=== PATIENT | female | born 1945 | race Caucasian/White ===

== ENCOUNTER → 2020-09-11 | Outpatient (REF) | payer MEDICARE, OTHER ==
[2020-09-11 12:58] LABS: HEMATOCRIT 42.3 % (36.0-47.0); HEMOGLOBIN 13.5 g/dl (12.0-15.5); MEAN CORPUSCULAR HEMOGLOBIN 28.8 pg (27.0-33.0); MEAN CORPUSCULAR HGB CONC 31.9 g/dl (32.0-36.5); MEAN CORPUSCULAR VOLUME 90.2 fl (80.0-96.0); PLATELET COUNT, AUTOMATED 241 10^3/uL (150-450); RED BLOOD COUNT 4.69 10^6/uL (4.00-5.40); WHITE BLOOD COUNT 4.9 10^3/uL (4.0-10.0)
[2020-09-11 13:50] LABS: BLOOD UREA NITROGEN 15 MG/DL (7-18); CALCIUM LEVEL 9.7 MG/DL (8.8-10.2); CARBON DIOXIDE LEVEL 32 MEQ/L (21-32); CHLORIDE LEVEL 104 MEQ/L (98-107); GLOMERULAR FILTRATION RATE > 60.0 (>39); GLUCOSE, FASTING 138 MG/DL (70-100); POTASSIUM SERUM 4.2 MEQ/L (3.5-5.1); SODIUM LEVEL 141 MEQ/L (136-145)
[2020-09-11 18:33] LABS: HEMOGLOBIN A1c 6.8 %
== END ==
LOC: M SFHCADAM 10:53
PROVIDERS: ATTEND Physician Assistant
DX: R73.01 Impaired fasting glucose (principal); I10 Essential (primary) hypertension

== ENCOUNTER 2020-10-23 09:44 | Emergency (ER) | payer MEDICARE, OTHER ==
[~2020-10-23] VITALS: Ht 172.7 cm; Wt 72.5 kg
[2020-10-23 10:36] LABS: BASO # 0.1 10^3/uL (0.0-0.2); BASO % 0.8 % (0.0-1.0); EOS # 0.1 10^3/uL (0.0-0.5); EOS % 2.3 % (0.0-3.0); HEMATOCRIT 44.5 % (36.0-47.0); HEMOGLOBIN 14.4 g/dl (12.0-15.5); LYMPH # 1.1 10^3/uL (1.5-5.0); MEAN CORPUSCULAR HEMOGLOBIN 29.6 pg (27.0-33.0); MEAN CORPUSCULAR HGB CONC 32.4 g/dl (32.0-36.5); MEAN CORPUSCULAR VOLUME 91.4 fl (80.0-96.0); MONO # 0.4 10^3/uL (0.0-0.8); MONO % 7.2 % (2.0-8.0); NEUTROPHILS # 4.3 10^3/uL (1.5-8.5); NEUTROPHILS % 71.4 % (36.0-66.0); PLATELET COUNT, AUTOMATED 244 10^3/uL (150-450); RED BLOOD COUNT 4.87 10^6/uL (4.00-5.40); WHITE BLOOD COUNT 6.1 10^3/uL (4.0-10.0)
--- NOTE | 2020-10-23 10:59 | REP ---
INDICATION: CHEST PAIN. COMPARISON: None. TECHNIQUE: Single portable AP view of the chest was performed. FINDINGS: There is mild linear fibro atelectatic change in each lung base without evidence of infiltrate. There is mild cardiomegaly. There is calcification and tortuosity of the thoracic aorta. The mediastinal silhouette is unchanged. IMPRESSION: No acute pulmonary disease.Mild cardiomegaly. <Electronically signed by Christoph Gama > 10/23/20 [id number]
[2020-10-23 11:13] LABS: ALBUMIN 3.8 GM/DL (3.2-5.2); ALT/SGPT 24 U/L (12-78); BILIRUBIN,DIRECT 0.1 MG/DL (0.0-0.2); BILIRUBIN,TOTAL 0.6 MG/DL (0.2-1.0); BLOOD UREA NITROGEN 19 MG/DL (7-18); CALCIUM LEVEL 9.2 MG/DL (8.8-10.2); CARBON DIOXIDE LEVEL 34 MEQ/L (21-32); CHLORIDE LEVEL 104 MEQ/L (98-107); CK-MB VALUE MASS 1.4 NG/ML (<3.6); CPK CREATINE PHOSPHOKINASE 75 U/L (26-192); CREATININE FOR GFR 0.98 MG/DL (0.55-1.30); FREE T4 0.94 NG/DL (0.76-1.46); GLOMERULAR FILTRATION RATE 58.6 (>39); GLUCOSE, FASTING 148 MG/DL (70-100); LIPASE 61 U/L (73-393); MB/CK RELATIVE INDEX 1.87 (< OR =4); NT-PRO BNP 2521 PG/ML (<450); POTASSIUM SERUM 4.5 MEQ/L (3.5-5.1); SODIUM LEVEL 140 MEQ/L (136-145); TOTAL PROTEIN 6.9 GM/DL (6.4-8.2); TROPONIN I < 0.02 NG/ML (< 0.10)
[2020-10-23] MEDS ORDERED: APIXABAN 5 MG TAB (ELIQUIS) PO ONE (12:05)
[2020-10-23] MEDS ORDERED: CARVedilol 6.25 MG TAB PO ONE (12:05)
[2020-10-23] MEDS ORDERED: CORE6.25 PO (14:48)
[2020-10-23] MEDS ORDERED: ELIQ5TAB PO (14:48)
[2020-10-23 15:01] VITALS: BP 159/94
--- NOTE | 2020-10-23 17:03 | ECGEPIP ---
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
== END 2020-10-23 15:20 | disposition home or self-care (01) ==
LOC: M ED 09:44
DX: I48.91 Unspecified atrial fibrillation (principal); I10 Essential (primary) hypertension; R73.01 Impaired fasting glucose; Z79.899 Other long term (current) drug therapy; Z79.01 Long term (current) use of anticoagulants

== ENCOUNTER → 2021-02-02 | Outpatient (REF) | payer MEDICARE, OTHER ==
[~2021-02-02] MED LIST: CORE6.25 PO; ELIQ5TAB PO
[2021-02-02 18:16] LABS: HEMATOCRIT 42.5 % (36.0-47.0); MEAN CORPUSCULAR HEMOGLOBIN 29.4 pg (27.0-33.0); MEAN CORPUSCULAR HGB CONC 32.9 g/dl (32.0-36.5); MEAN CORPUSCULAR VOLUME 89.3 fl (80.0-96.0); PLATELET COUNT, AUTOMATED 227 10^3/uL (150-450); RED BLOOD COUNT 4.76 10^6/uL (4.00-5.40); WHITE BLOOD COUNT 6.4 10^3/uL (4.0-10.0)
[2021-02-02 18:42] LABS: ALBUMIN 3.6 GM/DL (3.2-5.2); ALT/SGPT 31 U/L (12-78); BILIRUBIN,TOTAL 0.5 MG/DL (0.2-1.0); BLOOD UREA NITROGEN 18 MG/DL (7-18); CALCIUM LEVEL 9.1 MG/DL (8.8-10.2); CARBON DIOXIDE LEVEL 32 MEQ/L (21-32); CHLORIDE LEVEL 106 MEQ/L (98-107); CHOLESTEROL LEVEL 192 MG/DL (<200); CHOLESTEROL RISK RATIO 4.363 (<5); CREATININE FOR GFR 0.94 MG/DL (0.55-1.30); GLOMERULAR FILTRATION RATE > 60.0 (>39); GLUCOSE, FASTING 115 MG/DL (70-100); HDL CHOLESTEROL 44 MG/DL (>40); LDL CHOLESTEROL 123 MG/DL (<100); NON-HDL-C 148 MG/DL; POTASSIUM SERUM 4.8 MEQ/L (3.5-5.1); SODIUM LEVEL 141 MEQ/L (136-145); TOTAL PROTEIN 6.4 GM/DL (6.4-8.2); TRIGLYCERIDES LEVEL 124 MG/DL (<150)
[2021-02-02 19:05] LABS: HEMOGLOBIN A1c 7.2 %
== END ==
LOC: M SFHCADAM 13:36
PROVIDERS: ATTEND Physician Assistant
DX: Z13.220 Encounter for screening for lipoid disorders (principal); I10 Essential (primary) hypertension; R73.01 Impaired fasting glucose; I48.91 Unspecified atrial fibrillation
CPT/HCPCS: 80053; 80061; 83036; 85027; G0463

== ENCOUNTER → 2021-05-15 | Outpatient (REF) | payer MEDICARE, OTHER | LOC: M SFHCADAM 17:01 | PROVIDERS: ATTEND Physician Assistant | DX: R05.9 Cough, unspecified (principal) ==

== ENCOUNTER → 2021-05-15 | Outpatient (CLI) | payer MEDICARE, OTHER | LOC: M ADAMS 15:07 | PROVIDERS: ATTEND Physician Assistant | DX: R91.8 Other nonspecific abnormal finding of lung field (principal); J90 Pleural effusion, not elsewhere classified; R05.9 Cough, unspecified | CPT/HCPCS: 71046; 87426; G0463; U0003 ==

== ENCOUNTER → 2021-10-03 | Outpatient (CLI) | payer MEDICARE, OTHER ==
[2021-10-03 12:29] LABS: HEMATOCRIT 42.9 % (36.0-47.0); MEAN CORPUSCULAR HEMOGLOBIN 29.7 pg (27.0-33.0); MEAN CORPUSCULAR HGB CONC 32.6 g/dl (32.0-36.5); MEAN CORPUSCULAR VOLUME 90.9 fl (80.0-96.0); PLATELET COUNT, AUTOMATED 188 10^3/uL (150-450); RED BLOOD COUNT 4.72 10^6/uL (4.00-5.40); WHITE BLOOD COUNT 5.4 10^3/uL (4.0-10.0)
[2021-10-03 13:11] LABS: ALBUMIN 3.5 GM/DL (3.2-5.2); BILIRUBIN,TOTAL 0.8 MG/DL (0.2-1.0); CALCIUM LEVEL 8.7 MG/DL (8.8-10.2); CREATININE FOR GFR 1.13 MG/DL (0.55-1.30); GLOMERULAR FILTRATION RATE 49.6 (>39); MAGNESIUM LEVEL 2.3 MG/DL (1.8-2.4); POTASSIUM SERUM 4.4 MEQ/L (3.5-5.1); TOTAL PROTEIN 6.4 GM/DL (6.4-8.2)
== END ==
LOC: M WUC 08:45
PROVIDERS: ATTEND Physician Assistant
DX: I48.91 Unspecified atrial fibrillation (principal); I10 Essential (primary) hypertension

== ENCOUNTER → 2022-02-08 | Outpatient (REF) | payer MEDICARE, OTHER ==
[2022-02-08 17:57] LABS: HEMOGLOBIN 13.3 g/dl (12.0-15.5); MEAN CORPUSCULAR HEMOGLOBIN 30.2 pg (27.0-33.0); MEAN CORPUSCULAR HGB CONC 32.4 g/dl (32.0-36.5); PLATELET COUNT, AUTOMATED 189 10^3/uL (150-450); RED BLOOD COUNT 4.41 10^6/uL (4.00-5.40); WHITE BLOOD COUNT 5.4 10^3/uL (4.0-10.0)
[2022-02-08 18:23] LABS: HEMOGLOBIN A1c 7.3 %
[2022-02-08 18:27] LABS: APPEARANCE, URINE MANUAL CLEAR (CLEAR); COLOR, URINE MANUAL YELLOW (YELLOW)
[2022-02-08 18:28] LABS: BILIRUBIN, URINE MANUAL NEGATIVE (NEGATIVE); BLOOD URINE MANUAL NEGATIVE (NEGATIVE); GLUCOSE, URINE (UA) MANUAL 2+(250 MG/DL) mg/dL (NEGATIVE); KETONE, URINE MANUAL NEGATIVE (NEGATIVE); LEUKOCYTE ESTERASE, URINE MAN NEGATIVE (NEGATIVE); NITRITE, URINE MANUAL NEGATIVE (NEGATIVE); PROTEIN, URINE MANUAL NEGATIVE (NEGATIVE); SPECIFIC GRAVITY,URINE MANUAL 1.025 (1.002-1.035); UROBILINOGEN, URINE MANUAL NORMAL (NORMAL)
[2022-02-08 18:40] LABS: ALBUMIN 3.6 GM/DL (3.2-5.2); BILIRUBIN,TOTAL 0.7 MG/DL (0.2-1.0); CALCIUM LEVEL 9.3 MG/DL (8.8-10.2); CHOLESTEROL RISK RATIO 3.744 (<5); CREATININE FOR GFR 1.03 MG/DL (0.55-1.30); FREE T4 0.92 NG/DL (0.76-1.46); GLOMERULAR FILTRATION RATE 55.2 (>39); POTASSIUM SERUM 4.3 MEQ/L (3.5-5.1); THYROID STIMULATING HORMONE 1.73 uIU/ML (0.358-3.740); TOTAL PROTEIN 6.6 GM/DL (6.4-8.2)
== END ==
LOC: M SFHCADAM 11:58
PROVIDERS: ATTEND Physician Assistant
DX: I48.91 Unspecified atrial fibrillation (principal); I10 Essential (primary) hypertension; E11.9 Type 2 diabetes mellitus without complications; R35.0 Frequency of micturition

== ENCOUNTER → 2022-09-13 | Outpatient (REF) | payer MEDICARE, OTHER ==
[2022-09-13 17:32] LABS: ALBUMIN 4.1 G/DL (3.2-5.2); ALKALINE PHOSPHATASE 88 U/L (46-116); ALT/SGPT 32 U/L (7.0-40); AST/SGOT 29 U/L (<34); BILIRUBIN,TOTAL 0.7 MG/DL (0.3-1.2); BLOOD UREA NITROGEN 17 MG/DL (9-23); CALCIUM LEVEL 9.5 MG/DL (8.3-10.6); CARBON DIOXIDE LEVEL 32 MMOL/L (20-31); CHLORIDE LEVEL 104 MMOL/L (98-107); CREATININE FOR GFR 0.89 MG/DL (0.55-1.30); GLOMERULAR FILTRATION RATE > 60.0 (>39); GLUCOSE, FASTING 148 MG/DL (74-106); POTASSIUM SERUM 4.7 MMOL/L (3.5-5.1); SODIUM LEVEL 139 MMOL/L (136-145); TOTAL PROTEIN 7.1 G/DL (5.7-8.2)
[2022-09-13 17:43] LABS: HEMOGLOBIN A1c 7.8 % (4.0-6.0)
== END ==
LOC: M SFHCADAM 11:43
PROVIDERS: ATTEND Physician Assistant
DX: I10 Essential (primary) hypertension (principal); I48.91 Unspecified atrial fibrillation; E11.9 Type 2 diabetes mellitus without complications

== ENCOUNTER → 2023-01-14 | Outpatient (REF) | payer MEDICARE, OTHER ==
[2023-01-14 17:30] LABS: HEMATOCRIT 41.9 % (36.0-47.0); HEMOGLOBIN 13.3 g/dl (12.0-15.5); MEAN CORPUSCULAR HEMOGLOBIN 29.4 pg (27.0-33.0); MEAN CORPUSCULAR HGB CONC 31.7 g/dl (32.0-36.5); MEAN CORPUSCULAR VOLUME 92.7 fl (80.0-96.0); PLATELET COUNT, AUTOMATED 236 10^3/uL (150-450); RED BLOOD COUNT 4.52 10^6/uL (4.00-5.40); WHITE BLOOD COUNT 6.9 10^3/uL (4.0-10.0)
[2023-01-14 17:53] LABS: ALBUMIN 3.8 G/DL (3.2-5.2); ALKALINE PHOSPHATASE 89 U/L (46-116); ALT/SGPT 21 U/L (7.0-40); AST/SGOT 14 U/L (<34); BILIRUBIN,TOTAL 0.8 MG/DL (0.3-1.2); BLOOD UREA NITROGEN 15 MG/DL (9-23); CALCIUM LEVEL 9.5 MG/DL (8.3-10.6); CARBON DIOXIDE LEVEL 32 MMOL/L (20-31); CHLORIDE LEVEL 102 MMOL/L (98-107); CHOLESTEROL LEVEL 197 MG/DL (<200); CHOLESTEROL RISK RATIO 4.37 (<5); CREATININE FOR GFR 0.88 MG/DL (0.55-1.30); GLOMERULAR FILTRATION RATE > 60.0 (>39); GLUCOSE, FASTING 243 MG/DL (74-106); LDL CHOLESTEROL 120.2 MG/DL (<100); POTASSIUM SERUM 4.9 MMOL/L (3.5-5.1); SODIUM LEVEL 138 MMOL/L (136-145); THYROID STIMULATING HORMONE 2.339 uIU/ML (0.55-4.78); TOTAL PROTEIN 6.9 G/DL (5.7-8.2); TRIGLYCERIDES LEVEL 159 MG/DL (<150)
[2023-01-14 17:55] LABS: FOLATE 19.8 NG/ML (>5.4); FREE T4 0.98 NG/DL (0.89-1.76); HEMOGLOBIN A1c 7.5 % (4.0-6.0)
[2023-01-14 17:56] LABS: VITAMIN B12 LEVEL 473 PG/ML (211-911)
== END ==
LOC: M SFHCADAM 12:01
PROVIDERS: ATTEND Physician Assistant
DX: I10 Essential (primary) hypertension (principal); I48.91 Unspecified atrial fibrillation; E11.9 Type 2 diabetes mellitus without complications

== ENCOUNTER → 2023-07-24 | Outpatient (REF) | payer MEDICARE, OTHER ==
[2023-07-24 14:48] LABS: BASO % 0.6 % (0.0-1.0); EOS # 0.1 10^3/uL (0.0-0.5); EOS % 1.8 % (0.0-3.0); HEMATOCRIT 38.9 % (36.0-47.0); HEMOGLOBIN 12.9 g/dl (12.0-15.5); LYMPH # 0.8 10^3/uL (1.5-5.0); LYMPH % 11.3 % (24.0-44.0); MEAN CORPUSCULAR HEMOGLOBIN 29.7 pg (27.0-33.0); MEAN CORPUSCULAR HGB CONC 33.2 g/dl (32.0-36.5); MEAN CORPUSCULAR VOLUME 89.4 fl (80.0-96.0); MONO # 0.5 10^3/uL (0.0-0.8); NEUTROPHILS # 5.2 10^3/uL (1.5-8.5); NEUTROPHILS % 78.5 % (36.0-66.0); PLATELET COUNT, AUTOMATED 206 10^3/uL (150-450); RED BLOOD COUNT 4.35 10^6/uL (4.00-5.40); WHITE BLOOD COUNT 6.6 10^3/uL (4.0-10.0)
[2023-07-24 15:19] LABS: ALBUMIN 3.6 G/DL (3.2-5.2); ALKALINE PHOSPHATASE 80 U/L (46-116); ALT/SGPT 18 U/L (7.0-40); AST/SGOT 13 U/L (<34); BILIRUBIN,TOTAL 0.8 MG/DL (0.3-1.2); BLOOD UREA NITROGEN 15 MG/DL (9-23); CALCIUM LEVEL 8.9 MG/DL (8.3-10.6); CARBON DIOXIDE LEVEL 33 MMOL/L (20-31); CHLORIDE LEVEL 103 MMOL/L (98-107); CREATININE FOR GFR 0.84 MG/DL (0.55-1.30); GLOMERULAR FILTRATION RATE > 60.0 (>39); GLUCOSE, FASTING 319 MG/DL (74-106); POTASSIUM SERUM 3.9 MMOL/L (3.5-5.1); SODIUM LEVEL 140 MMOL/L (136-145); TOTAL PROTEIN 6.5 G/DL (5.7-8.2)
== END ==
LOC: M SFHCADAM 11:24
PROVIDERS: ATTEND Physician Assistant
DX: E11.9 Type 2 diabetes mellitus without complications (principal); E78.00 Pure hypercholesterolemia, unspecified

== ENCOUNTER → 2023-08-29 | Outpatient (REF) | payer MEDICARE, OTHER ==
[2023-08-29 14:14] LABS: CHOLESTEROL RISK RATIO 3.24 (<5); HDL CHOLESTEROL 40.1 MG/DL (>40); LDL CHOLESTEROL 65.5 MG/DL (<100); NON-HDL-C 89.9 MG/DL
== END ==
LOC: M SFHCADAM 10:55
PROVIDERS: ATTEND Family Medicine
DX: E11.9 Type 2 diabetes mellitus without complications (principal); E78.00 Pure hypercholesterolemia, unspecified

== ENCOUNTER → 2023-09-02 | Outpatient (REF) | payer MEDICARE, OTHER ==
[2023-09-02 18:28] LABS: APPEARANCE, URINE CLEAR (CLEAR); BACTERIA, URINE AUTO NEGATIVE (NEGATIVE); BILIRUBIN, URINE AUTO NEGATIVE (NEGATIVE); BLOOD, URINE BLOOD NEGATIVE (NEGATIVE); COLOR, URINE STRAW (YELLOW); GLUCOSE, URINE (UA) AUTO NEGATIVE (NEGATIVE); KETONE, URINE AUTO NEGATIVE (NEGATIVE); LEUKOCYTE ESTERASE, URINE AUTO NEGATIVE (NEGATIVE); NITRITE, URINE AUTO NEGATIVE (NEGATIVE); PROTEIN, URINE AUTO NEGATIVE (NEGATIVE); RBC, URINE AUTO 0 /HPF (0-3); SQUAMOUS EPITHELIAL CELL UR AU 0 /HPF (0-6); UROBILINOGEN, URINE AUTO 0.2 mg/dL (0.0-2.0); WBC, URINE AUTO 0 /HPF (0-3)
== END ==
LOC: M SFHCADAM 17:19
PROVIDERS: ATTEND Physician Assistant
DX: R58 Hemorrhage, not elsewhere classified (principal); Z79.899 Other long term (current) drug therapy

== ENCOUNTER → 2023-11-20 | Outpatient (REF) | payer MEDICARE, OTHER ==
[2023-11-20 13:47] LABS: IRON (FE) 121 UG/DL (50-170)
[2023-11-20 13:51] LABS: VITAMIN B12 LEVEL 596 PG/ML (211-911)
== END ==
LOC: M LAB REF 12:45
PROVIDERS: ATTEND Nurse Practitioner Adult Health
DX: R41.3 Other amnesia (principal); F01-F99 Mental, behavioral and neurodevelopmental disorders; Z11.3 Encounter for screening for infections with a predominantly sexual mode of transmission; Z72.89 Other problems related to lifestyle

== ENCOUNTER → 2023-12-04 | Outpatient (CLI) | payer MEDICARE, OTHER | LOC: M RAD 11:05 | PROVIDERS: ATTEND Nurse Practitioner Adult Health | DX: R41.3 Other amnesia (principal); R26.89 Other abnormalities of gait and mobility ==

== ENCOUNTER 2025-05-06 10:20 | Inpatient (IN) | payer MEDICARE, OTHER ==
[~2025-05-06] VITALS: Ht 172.7 cm; Wt 69.1 kg
[2025-05-06] MEDS ORDERED: DONE5TAB82 PO (10:42)
[2025-05-06] MEDS ORDERED: METF500T13 PO (10:42)
[2025-05-06] MEDS ORDERED: ATOR1TAB19 PO (10:42)
[2025-05-06] MEDS ORDERED: CARV25TA PO (10:42)
[2025-05-06] MEDS ORDERED: OXYB-54 PO (10:42)
[2025-05-06] MEDS ORDERED: VALS1TAB67 PO (10:42)
[2025-05-06] MEDS ORDERED: HYDR-3490 PO (10:42)
[2025-05-06 11:26] LABS: VENOUS BASE EXCESS 4.4 (-2.0-2.0); VENOUS HCO3 30.4 MMOL/L (23.0-27.0); VENOUS O2 SATURATION 68.6 % (60.0-80.0); VENOUS PARTIAL PRESSURE CO2 50.6 mmHg (38.0-50.0); VENOUS PARTIAL PRESSURE O2 37.3 mmHg (30.0-50.0); VENOUS PH 7.396 UNITS (7.330-7.430); VENOUS STANDARD HCO3 27.6 MMOL/L; VENOUS TOTAL CO2 31.9 MMOL/L (24.0-28.0)
[2025-05-06] MEDS: LIDOCAINE 2% 5 ML JELLY UROJET TOP ONE (11:27)
[2025-05-06 11:33] LABS: BASO # 0.0 10^3/uL (0.0-0.2); BASO % 0.5 % (0.0-1.0); EOS # 0.1 10^3/uL (0.0-0.5); EOS % 2.3 % (0.0-3.0); LYMPH # 0.9 10^3/uL (1.5-5.0); LYMPH % 21.3 % (24.0-44.0); MONO # 0.4 10^3/uL (0.0-0.8); MONO % 8.4 % (2.0-8.0); NEUTROPHILS # 3.0 10^3/uL (1.5-8.5); NEUTROPHILS % 66.8 % (36.0-66.0); PLATELET COUNT, AUTOMATED 196 10^3/uL (150-450)
[2025-05-06 11:52] LABS: KETONE, URINE AUTO RFX NEGATIVE (NEGATIVE); LEUKOCYTE ESTERASE UR AUTO RFX NEGATIVE (NEGATIVE); MUCUS, URINE RFX SMALL (NEGATIVE); NITRITE, URINE AUTO RFX NEGATIVE (NEGATIVE); RBC, URINE AUTO RFX 1 /HPF (0-3); SQUAM EPITHELIAL CELL UR AURFX 0 /HPF (0-6); WBC, URINE AUTO RFX 1 /HPF (0-3)
[2025-05-06 12:22] LABS: CK-MB VALUE MASS 2.3 NG/ML (<3.6); ETHYL ALCOHOL (ETHANOL) < 0.003 % (0.000-0.010)
[2025-05-06 12:24] LABS: ALT/SGPT 16 U/L (7.0-40); AST/SGOT 23 U/L (<34); CALCIUM LEVEL 8.9 MG/DL (8.3-10.6); CARBON DIOXIDE LEVEL 30 MMOL/L (20-31); CHLORIDE LEVEL 97 MMOL/L (98-107); CPK CREATINE PHOSPHOKINASE 43 U/L (34-145); CREATININE FOR GFR 0.98 MG/DL (0.55-1.30); GLOMERULAR FILTRATION RATE 58.0 (>32); MB/CK RELATIVE INDEX 5.34 (< OR =4); POTASSIUM SERUM 3.4 MMOL/L (3.5-5.1); SALICYLATE LEVEL < 3.0 MG/DL (<30); SODIUM LEVEL 137 MMOL/L (136-145)
[2025-05-06] MEDS: NS (Normal Saline) 0.9% 1,000 ML IV ONE (12:40)
[2025-05-06 12:44] LABS: ESTIMATED AVERAGE GLUCOSE 249.0 MG/DL (60-110)
[2025-05-06] MEDS: HumuLIN R (REGULAR) INSULIN (NovoLIN R) **100 U/ML** PER UNIT IV ONE (12:45)
[2025-05-06 13:37] LABS: CK-MB VALUE MASS 1.7 NG/ML (<3.6)
[2025-05-06 13:38] LABS: CPK CREATINE PHOSPHOKINASE 45.0 U/L (34-145); MB/CK RELATIVE INDEX 3.77 (< OR =4)
[2025-05-06] MEDS ORDERED: ELIQ5TAB PO (13:59)
[2025-05-06] MEDS ORDERED: HOME MED LIST COMPLETE! XX SCH (14:00)
[2025-05-06] MEDS: OSELTAMIVIR PHOSPHATE 75 MG CAP PO ONE (15:07)
[2025-05-06] MEDS ORDERED: ACETAMINOPHEN 325 MG TAB PO PRN (15:15)
[2025-05-06] MEDS ORDERED: GLUCOSE 4 GM CHEW PO PRN (15:15)
[2025-05-06] MEDS ORDERED: DEXTROSE 50% 50 ML SYRINGE IV PRN (15:15)
[2025-05-06] MEDS ORDERED: GLUCAGON INJ 1 MG VIAL SC PRN (15:15)
[2025-05-06] MEDS: NS (Normal Saline) 0.9% 1,000 ML IV SCH (16:19)
[2025-05-06] MEDS: POTASSIUM CHLORIDE 10MEQ SR TABLET PO ONE (16:20)
[2025-05-06] MEDS: INSULIN LISPRO (NovoLOG) PER UNIT SC SCH ×2 (18:43→20:45)
[2025-05-06 18:49] VITALS: BP 136/92; TEMP 97.9; O2SAT 96
[2025-05-06 20:06] VITALS: BP 156/79; TEMP 99; O2SAT 96
[2025-05-06] MEDS: LanTUS (INSULIN GLARGINE INJ) 1 UNITS/0.01 ML SC SCH (20:52)
[2025-05-06] MEDS: guaiFENesin ER TABLET 600 MG TAB PO SCH (20:52)
[2025-05-06] MEDS: DONEPEZIL 5 MG TAB PO SCH (20:53)
[2025-05-06] MEDS: APIXABAN 5 MG TAB PO SCH (20:53)
[2025-05-06] MEDS: OSELTAMIVIR PHOSPHATE 30MG CAPSULE PO SCH (20:57)
[2025-05-06 23:50] VITALS: BP 149/76; TEMP 98; O2SAT 97
[2025-05-07 03:33] VITALS: BP_SYST 133; BP_SYST 153; BP_DIAS 87; TEMP 98.7; O2SAT 94
[2025-05-07 04:17] VITALS: BP 127/83; TEMP 97.6; O2SAT 95
[2025-05-07 06:10] LABS: BASO # 0.0 10^3/uL (0.0-0.2); BASO % 0.4 % (0.0-1.0); EOS # 0.1 10^3/uL (0.0-0.5); EOS % 3.0 % (0.0-3.0); LYMPH # 1.2 10^3/uL (1.5-5.0); LYMPH % 25.0 % (24.0-44.0); MONO # 0.5 10^3/uL (0.0-0.8); MONO % 9.7 % (2.0-8.0); NEUTROPHILS # 2.9 10^3/uL (1.5-8.5); NEUTROPHILS % 61.5 % (36.0-66.0); PLATELET COUNT, AUTOMATED 183 10^3/uL (150-450)
[2025-05-07 06:39] LABS: ALT/SGPT 12.0 U/L (7.0-40); AST/SGOT 18.0 U/L (<34); CALCIUM LEVEL 8.2 MG/DL (8.3-10.6); CARBON DIOXIDE LEVEL 31.0 MMOL/L (20-31); CHLORIDE LEVEL 103.0 MMOL/L (98-107); CREATININE FOR GFR 0.86 MG/DL (0.55-1.30); GLOMERULAR FILTRATION RATE 67.8 (>32); MAGNESIUM LEVEL 1.4 MG/DL (1.8-2.4); POTASSIUM SERUM 3.2 MMOL/L (3.5-5.1); SODIUM LEVEL 142.0 MMOL/L (136-145)
[2025-05-07 07:42] VITALS: BP 139/83; TEMP 98.2; O2SAT 94
[2025-05-07] MEDS: MAG SULF 1GM/100ML (MAG RUN) 1 GM in IV 1 EA IV SCH (08:01)
[2025-05-07] MEDS: POTASSIUM CHLORIDE 10MEQ SR TABLET PO ONE ×2 (08:02→12:32)
[2025-05-07 08:03] VITALS: BP 139/83
[2025-05-07] MEDS: oxyBUTYnin *XL* 5 MG TAB PO SCH (08:03)
[2025-05-07] MEDS: VALSARTAN 80MG TAB PO SCH (08:03)
[2025-05-07] MEDS: ATORVASTATIN 10 MG TAB PO SCH (08:03)
[2025-05-07] MEDS ORDERED: MAGN1TAB26 PO (10:48)
[2025-05-07] MEDS ORDERED: MUCI600T31 PO (10:48)
[2025-05-07] MEDS ORDERED: INSU100I51 SQ (10:48)
[2025-05-07] MEDS ORDERED: OSEL30CA PO (10:48)
[2025-05-07] MEDS ORDERED: METF500T13 PO (10:48)
[2025-05-07] MEDS ORDERED: PEN-308 SC (10:49)
[2025-05-07 12:39] VITALS: BP 124/85; TEMP 98.7; O2SAT 95
== END 2025-05-07 14:00 | disposition home health service (06) | DRG 72 ==
LOC: M ED 11:20 → M ED INP 15:15 → M PCU 18:24
PROVIDERS: ADMIT Internal Medicine; ATTEND Internal Medicine
DX: G93.41 Metabolic encephalopathy (principal); J10.1 Influenza due to other identified influenza virus with other respiratory manifestations; E86.0 Dehydration; G31.84 Mild cognitive impairment of uncertain or unknown etiology; I48.91 Unspecified atrial fibrillation; I10 Essential (primary) hypertension; E11.65 Type 2 diabetes mellitus with hyperglycemia; E78.5 Hyperlipidemia, unspecified; R00.0 Tachycardia, unspecified; E87.6 Hypokalemia; N32.81 Overactive bladder; Z79.01 Long term (current) use of anticoagulants; Z79.899 Other long term (current) drug therapy; Z79.84 Long term (current) use of oral hypoglycemic drugs

== ENCOUNTER → 2025-05-11 | Outpatient (REF) | payer MEDICARE, OTHER ==
[~2025-05-11] MED LIST changes: +ATOR1TAB19 PO; +CARV25TA PO; +DONE5TAB82 PO; +HYDR-3490 PO; +INSU100I51 SQ; +MAGN1TAB26 PO; +METF500T13 PO; +MUCI600T31 PO; +OSEL30CA PO; +OXYB-54 PO; +PEN-308 SC; +VALS1TAB67 PO
[2025-05-11 17:40] LABS: VITAMIN B12 LEVEL 879 PG/ML (211-911)
== END ==
LOC: M LAB REF 17:06
PROVIDERS: ATTEND Nurse Practitioner Adult Health
DX: R41.3 Other amnesia (principal); Z11.3 Encounter for screening for infections with a predominantly sexual mode of transmission; Z72.89 Other problems related to lifestyle